=== PATIENT | female | born 1960 | race Caucasian/White ===

== ENCOUNTER → 2018-03-14 | Outpatient (CLI) | payer OTHER ==
[~2018-03-14] MED LIST: IMITREX50 MG PO; LIPITOR20 MG PO; LO-DOSE ASPIRIN81 M2 PO; TOPAMAX25 MG PO; ZOLOFT50 MG PO
== END | disposition home or self-care (01) ==
LOC: CDC 12:32
DX: Z01.810 Encounter for preprocedural cardiovascular examination (principal)
CPT/HCPCS: 93000

== ENCOUNTER 2018-03-21 06:59 | Day surgery (SDC) | payer OTHER ==
[~2018-03-21] VITALS: Ht 175.3 cm; Wt 78.9 kg
[2018-03-21 07:20] VITALS: BP 126/58
[2018-03-21] MEDS ORDERED: NORCO 5/3251 TABLET PO (09:40)
[2018-03-21] MEDS ORDERED: MOTRIN400 MG PO (09:40)
[2018-03-21 10:45] VITALS: BP 131/58
[2018-03-21 11:15] VITALS: BP 110/52
== END 2018-03-21 11:30 | disposition home or self-care (01) ==
LOC: SDC
DX: N84.0 Polyp of corpus uteri (principal); N84.1 Polyp of cervix uteri; N95.0 Postmenopausal bleeding; D25.9 Leiomyoma of uterus, unspecified; F41.9 Anxiety disorder, unspecified; Z79.82 Long term (current) use of aspirin
CPT/HCPCS: 88305; J1100; J1885; J2250; J2405; J3010